=== PATIENT | female | born 1955 | race Caucasian/White ===

== ENCOUNTER 2016-12-21 06:44 | Day surgery (SDC) | payer OTHER ==
[2016-12-21] VITALS (12 sets, daily range): BP systolic 101–166; BP diastolic 50–77; PULSE 61–72
[~2016-12-21] VITALS: Ht 160 cm; Wt 46.8 kg
[~2016-12-21 06:44] MED LIST: ASPI325T6 PO; ASPIRIN 32325 MG/TAB PO; B COMPLEX1 TA2; BETIMOL 0.5% OPH5 ML OP; BETIMOL 0.5% OPH5 ML OU; CALCIUM600 M2 PO; CELEBREX 200MG200 MG PO; CLARITIN 1010 MG/TAB PO; CLARITIN10 MG PO; DESYREL 100MG100 MG PO; FIBER CHOICE1 CTB PO; FISH OIL1000 MG PO; FOLIC ACID0.8 MG PO; LEVAQUIN 5500 MG/TA1 PO; LUNESTA3 MG PO; MASON NATURAL600 MG PO; MOTRIN 600600 MG/TAB PO; MOTRIN 800800 MG/TAB PO; MULTIPLE VITAMI1 CAP PO; MYLANTA 150 ML150 M1 PO; NATURAL E400 IU PO; NEW ENERGY1 CAP PO; NIASPAN 500MG500 MG PO; OMEPRAZOLE D/R20 MG PO; PERCOCET 325 MG1 TA2 PO; PRILOSEC 20MG20 MG PO; PROAIR HFA0.09 MG/AC IH; ROXICODONE 55 MG/TAB PO; STOOL SOFTENER100 M2 PO; VITAMIN C500 MG PO; XANAX 0.5MG0.5 MG PO; XOPENEX HF0.045 MG/A IH; ZANTAC 150MG T150 MG PO; ZOCOR20 MG PO; ZOLOFT 25MG25 MG PO
[2016-12-21 07:41] LABS: HEMATOCRIT 38.8 % (37.0-47.0); HEMOGLOBIN 12.9 g/dl (12.5-16.0); MEAN CELL VOLUME 94 fl (80.0-100.0); MEAN CORPUSCULAR HEMOGLOBIN 31 pg (27.0-31.0); MEAN CORPUSCULAR HGB CONC 33 g/dl (33.0-37.0); MEAN PLATELET VOLUME 8.4 fl (7.4-10.4); PLATELET COUNT 262 K/mm3 (130-400); RED BLOOD COUNT 4.12 M/mm3 (4.10-5.30); REDCELL DISTRIBUTION WIDTH-CV 12.2 % (11.5-14.5); WHITE BLOOD COUNT 3.7 K/mm3 (4.8-10.8)
[2016-12-21 07:55] LABS: CALCIUM 9.1 mg/dL (8.4-10.2); CREATININE, serum 0.77 mg/dL (0.52-1.25); POTASSIUM 3.8 mmol/L (3.4-5.0)
[2016-12-21 08:07] LABS: PROTHROMBIN TIME 11.2 SECONDS (9.7-12.8)
[2016-12-21] MEDS ORDERED: ASPIRIN E.C. 8181 MG PO (08:31)
[2016-12-21] MEDS ORDERED: COZAAR 25MG25 MG/TAB PO (08:41)
[2016-12-21] MEDS ORDERED: CLOBEX 118 ML118 M1 TP (08:42)
[2016-12-21] MEDS ORDERED: CELLUVISC OP (08:43)
[2016-12-21] MEDS ORDERED: REFRESH PLUS 00.4 M1 OP (08:44)
[2016-12-21] MEDS ORDERED: RT ADVAIR HFA 2312 G IH (08:44)
[2016-12-21] MEDS ORDERED: AZELASTINE NAS (08:48)
[2016-12-21] MEDS ORDERED: RT SPIRIVA18 MCG IH (08:49)
[2016-12-21] MEDS ORDERED: FLONASE NASAL S16 GM NS (08:49)
[2016-12-21] MEDS ORDERED: DESYREL 50MG50 MG PO (08:50)
[2016-12-21] MEDS ORDERED: FOLIC ACID0.4 MG PO (08:50)
[2016-12-21] MEDS ORDERED: MIRALAX PA17 GM/Dose PO (08:58)
[2016-12-21 10:07] LABS: ARTERIAL BLD GAS O2 SATURATION 96.7 % (92-100); ARTERIAL BLD GAS TCO2 CT 28.6; ARTERIAL BLOOD GAS BASE EXCESS 2.4 (-2-2); ARTERIAL BLOOD GAS HCO3 27.3 meq/L (22-26); ARTERIAL BLOOD GAS PHT 7.42 C (7.35-7.45); ARTERIAL BLOOD GAS PO2 93.4 mmHg (80-100); ARTERIAL BLOOD GAS PO2T 93.4 (80-100); ARTERIAL BLOOD GAS pH 7.42 (7.35-7.45); OXYHEMOGLOBIN 96.3 %
[2016-12-21 10:09] LABS: ALLEN TEST NO; ATS? NO
== END 2016-12-21 14:17 | disposition home or self-care (01) ==
LOC: EUO 06:44 → COL.RAD 07:00 → EUO 07:00
PROVIDERS: Internal Medicine Cardiovascular Disease
DX: R06.02 Shortness of breath (principal); I27.2 Other secondary pulmonary hypertension; I10 Essential (primary) hypertension; I34.0 Nonrheumatic mitral (valve) insufficiency
CPT/HCPCS: C1760; J2250; J3010; Q9967

== ENCOUNTER → 2017-02-02 | Outpatient (CLI) | payer OTHER ==
[~2017-02-02] MED LIST changes: +ASPIRIN E.C. 8181 MG PO; +AZELASTINE NAS; +CELLUVISC OP; +CLOBEX 118 ML118 M1 TP; +COZAAR 25MG25 MG/TAB PO; +DESYREL 50MG50 MG PO; +FLONASE NASAL S16 GM NS; +FOLIC ACID0.4 MG PO; +MIRALAX PA17 GM/Dose PO; +REFRESH PLUS 00.4 M1 OP; +RT ADVAIR HFA 2312 G IH; +RT SPIRIVA18 MCG IH
== END ==
LOC: COL.RAD 10:19
DX: R10.2 Pelvic and perineal pain (principal); Z90.710 Acquired absence of both cervix and uterus

== ENCOUNTER → 2018-12-20 | Outpatient (CLI) | payer MEDICARE, OTHER ==
[~2018-12-20] MED LIST changes: +ASTELIN NASAL S34 ML NS; -AZELASTINE NAS; +NIZORAL SHAMPO120 M1 TP; +PIMECROLIMUS TOP; +PROSCAR 5MG5 MG PO; +SINGULAIR 110 MG/TAB
== END ==
LOC: COL.RAD 07:32
DX: K21.0 Gastro-esophageal reflux disease with esophagitis (principal)
CPT/HCPCS: A9541

== ENCOUNTER 2019-05-22 07:29 | Day surgery (SDC) | payer MEDICARE, OTHER ==
[~2019-05-22] VITALS: Ht 154.9 cm; Wt 47.1 kg
[2019-05-22 08:07] VITALS: BP 129/67; PULSE 20; TEMP 97.2
--- NOTE | 2019-05-22 08:12 | NUR ---
TO RM 7 AT 0740- CALL LIGHT IN REACH
--- NOTE | 2019-05-22 08:13 | NUR ---
IT WAS RESEARCHED BY BRO GIRARD PATIENT TESTED SEVERAL TIMES AND NEG MRSA RESULTS. PER PATIENT BEEN TESTED 3 TIMES WITH NEG RESULTS.
[2019-05-22] MEDS ORDERED: COZAAR 50MG50 MG/TAB PO (08:20)
[2019-05-22] MEDS ORDERED: XIIDRA1 EACH OP (08:23)
[2019-05-22] MEDS ORDERED: ELIDEL1% TOP (08:25)
[2019-05-22] MEDS ORDERED: FIBER0.52 GM PO (08:28)
[2019-05-22] MEDS ORDERED: VITAMINC1000TA PO (08:37)
[2019-05-22] MEDS ORDERED: XOPENEX HF0.045 MG/A IH (08:41)
[2019-05-22] MEDS ORDERED: FORTEO250 MCG/ML PO (08:45)
[2019-05-22] MEDS ORDERED: MIRALAX119G PO (08:47)
[2019-05-22 10:20] VITALS: BP 116/64; PULSE 77; TEMP 98.1
--- NOTE | 2019-05-22 10:20 | NUR ---
TO RM 7 PER CART FROM ENDOSCOPY ACCOMPANIED BY NURSE. ALERT ORIENTED X3, TALKING WITH STAFF AND . DR CANADA TALKED WITH PIOR TO RETURNING TO RM. RESPIRATIONS EVEN AND NONLABORED OCCASIONAL COUGH DENIES PAIN DENIES N/V
[2019-05-22 10:35] VITALS: BP 118/68; PULSE 72
--- NOTE | 2019-05-22 10:35 | NUR ---
RECEIVED ACCAPELLA INSTRUCTIONS BY RESPITORY. RECEIVED WATER, COFFEE AND MUFFIN.
[2019-05-22 10:50] VITALS: BP 113/54; PULSE 81
--- NOTE | 2019-05-22 10:50 | NUR ---
ATE 100% AND TOLERATED WELL.
--- NOTE | 2019-05-22 11:05 | NUR ---
RECEIVED DISCHARGE INSTRUCTIONS AND AND VERBALIZED UNDERSTANDING. DISCONTINUED IV AND INT- CATHETER INTACT PATIENT GETTING DRESSED
--- NOTE | 2019-05-22 11:15 | NUR ---
DISCHARGED PER WC BY NURSING STAFF TO PRIVATE CAR IN CARE OF PABLO.
[2019-05-22 12:40] VITALS: BP 101/59; PULSE 77
== END 2019-05-22 11:35 | disposition home or self-care (01) ==
LOC: SDCO 07:29
DX: J43.9 Emphysema, unspecified (principal); J45.991 Cough variant asthma; R91.1 Solitary pulmonary nodule; Z87.891 Personal history of nicotine dependence; K31.84 Gastroparesis; K21.9 Gastro-esophageal reflux disease without esophagitis; Z79.899 Other long term (current) drug therapy; J47.9 Bronchiectasis, uncomplicated; Z79.82 Long term (current) use of aspirin; Z90.49 Acquired absence of other specified parts of digestive tract; F32.9 Major depressive disorder, single episode, unspecified; G89.29 Other chronic pain; R20.2 Paresthesia of skin; F41.9 Anxiety disorder, unspecified; Z86.14 Personal history of Methicillin resistant Staphylococcus aureus infection; Z90.710 Acquired absence of both cervix and uterus; Z83.3 Family history of diabetes mellitus; Z82.49 Family history of ischemic heart disease and other diseases of the circulatory system; Z83.6 Family history of other diseases of the respiratory system; Z90.2 Acquired absence of lung [part of]
CPT/HCPCS: J2704; J7120

== ENCOUNTER → 2023-01-22 | Outpatient (CLI) | payer MEDICARE, OTHER ==
[~2023-01-22] MED LIST changes: +COZAAR 50MG50 MG/TAB PO; +ELIDEL1% TOP; +FIBER0.52 GM PO; +FORTEO250 MCG/ML PO; +MIRALAX119G PO; +VITAMINC1000TA PO; +XIIDRA1 EACH OP
== END ==
LOC: COL.VAS 11:33
DX: I07.1 Rheumatic tricuspid insufficiency (principal)

== ENCOUNTER → 2023-01-28 | Outpatient (CLI) | payer MEDICARE, OTHER | LOC: COL.PUL 07:17 | DX: R06.02 Shortness of breath (principal) ==